=== PATIENT | female | born 1960 | race American Indian/Alaskan Native ===

== ENCOUNTER 2018-02-25 10:39 | Outpatient (CLI) | payer OTHER ==
[2018-02-25 11:20] LABS: Hematocrit 38.7 % (30.3-42.9); Mean Corpuscular HGB Conc 31 % (30-34); Mean Corpuscular Volume 74 fl (79-97); Platelet Count 260 K/mm3 (140-440); Red Cell Distribution Width 14.9 % (13.2-15.2)
--- NOTE | 2018-02-25 11:36 | XRay Report ---
ROUTINE CHEST, TWO VIEWS: HISTORY: Bronchial asthma. No comparison. The lungs are mildly hyperinflated. No evidence for infiltrate, pleural effusion or pneumothorax. No interstitial lung disease is appreciated. Heart and mediastinal structures are unremarkable. Thoracic spondylosis is noted. IMPRESSION: Mild hyperinflation.
[2018-02-25 11:38] LABS: Albumin 4.1 g/dL (3.9-5); BUN/Creatinine Ratio 14; Blood Urea Nitrogen 11 mg/dL (7-17); Calcium 9.2 mg/dL (8.4-10.2); Chol/HDL Ratio 3.25 %; HDL Cholesterol 75 mg/dL (40-59); Hemolysis Index 145; LDL Cholesterol,Direct 156 mg/dL (50-130)
[2018-02-25 11:50] LABS: Mean Corpuscular Hemoglobin 23 pg (28-32)
[2018-02-25 13:23] LABS: Alanine Aminotransferase 38 units/L (7-56)
== END 2018-02-25 10:40 | disposition home or self-care (01) ==
LOC: XRAY 10:39
PROVIDERS: ATTEND Internal Medicine
DX: J98.11 Atelectasis (principal); J45.998 Other asthma; M47.894 Other spondylosis, thoracic region; R79.89 Other specified abnormal findings of blood chemistry
CPT/HCPCS: 36415; 71046; 80053; 80061; 82785; 84436; 84443; 85027

== ENCOUNTER 2018-03-09 08:34 | Outpatient (CLI) | payer OTHER ==
[2018-03-09 09:18] LABS: BUN/Creatinine Ratio 22; Blood Urea Nitrogen 20 mg/dL (7-17); Calcium 9.3 mg/dL (8.4-10.2); Hemolysis Index 0
== END 2018-03-09 08:35 | disposition home or self-care (01) ==
LOC: LAB 08:34
PROVIDERS: ATTEND Internal Medicine
DX: J45.909 Unspecified asthma, uncomplicated (principal); K21.9 Gastro-esophageal reflux disease without esophagitis; J30.89 Other allergic rhinitis
CPT/HCPCS: 36415; 80048

== ENCOUNTER 2021-03-06 08:27 | Outpatient (CLI) | payer OTHER ==
--- NOTE | 2021-03-06 09:29 | XRay Report ---
LUMBOSACRAL SPINE 3 VIEWS INDICATION: BACK PAIN. COMPARISON: 09/15/2018 IMPRESSION: Normal alignment. Mild to moderate degenerative disc disease and facet arthropathy are again noted at all levels. This appears unchanged in appearance since 09/15/2018 exam. No acute osseo us or soft tissue abnormality. Signer Name: Roland Tello Jr, MD Signed: 03/06/2021 9:25 AM Workstation Name: [id number]
== END 2021-03-06 08:28 | disposition home or self-care (01) ==
LOC: XRAY 08:27
PROVIDERS: ATTEND Internal Medicine
DX: M47.817 Spondylosis without myelopathy or radiculopathy, lumbosacral region (principal)
CPT/HCPCS: 72100